=== PATIENT | female | born 1990 | race Caucasian/White ===

== ENCOUNTER 2016-11-19 10:45 | Emergency (ER) | payer OTHER ==
[2016-11-19 10:57] VITALS: BP 105/66
--- NOTE | 2016-11-19 12:09 | UC ---
Throat Pain/Nasal Ayan HPI - HPI Summary HPI Summary: SORE THROAT SINCE LAST NIGHT HURTS TO SWALLOW, 99.1 F. STREP HAS BEEN GOING AROUND - History of Current Complaint Chief Complaint: UCGeneralIllness Stated Complaint: SORE THROAT Time Seen by Provider: 11/19/16 10:59 Hx Obtained From: Patient Hx Last Menstrual Period: depo shots Onset/Duration: Still Present Severity: Moderate Pain Intensity: 6 Pain Scale Used: 0-10 Numeric Cough: None Associated Signs & Symptoms: Positive: Dysphagia, Hoarseness - Epiglottits Risk Factors Epiglottis Risk Factors: Negative - Allergies/Home Medications Allergies/Adverse Reactions: Allergies Allergy/AdvReac Type Severity Reaction Status Date / Time Lactose Intolerant Allergy Intermediate GI Upset Uncoded 02/09/16 16:32 Home Medications: Home Medications Atorvastatin* [Lipitor 10 MG*] 10 mg PO DAILY 11/19/16 [History Confirmed ] Dulaglutide [Trulicity] 0.75 mg SC WEEKLY 11/19/16 [History Confirmed 11/19/16] PMH/Surg Hx/FS Hx/Imm Hx Previously Healthy: Yes Endocrine History Of: Reports: Diabetes - Type 2 Denies: Thyroid Disease Cardiovascular History Of: Denies: Cardiac Disorders, Hypertension Respiratory History Of: Denies: COPD, Asthma GI/ History Of: Denies: Ulcer - Surgical History Surgical History: Yes Surgery Procedure, Year, and Place: C-SECTIONS X2 - Family History Known Family History: Positive: None Negative: Respiratory Disease - Social History Occupation: Employed Full-time Lives: With Family Alcohol Use: Occasionally Substance Use Type: None Smoking Status (MU): Never Smoked Tobacco Review of Systems Constitutional: Negative Skin: Negative Eyes: Negative ENT: Sore Throat Respiratory: Negative Cardiovascular: Negative Gastrointestinal: Negative Genitourinary: Negative Motor: Negative Neurovascular: Negative Musculoskeletal: Negative Neurological: Negative Psychological: Negative All Other Systems Reviewed And Are Negative: Yes Physical Exam Triage Information Reviewed: Yes Appearance: Well-Appearing, No Pain Distress, Well-Nourished Vital Signs: Initial Vital Signs Temp 99.1 F 11/19/16 10:53 Pulse 95 11/19/16 10:53 Resp 16 11/19/16 10:53 BP 105/66 11/19/16 10:53 Pulse Ox 100 11/19/16 10:53 Vital Signs Reviewed: Yes Eye Exam: Normal ENT: Positive: Pharyngeal erythema, TMs normal, Tonsillar swelling Dental Exam: Normal Neck exam: Normal Neck: Positive: Supple, Nontender, No Lymphadenopathy Respiratory Exam: Normal Respiratory: Positive: Chest non-tender, Lungs clear, Normal breath sounds, No respiratory distress, No accessory muscle use Cardiovascular Exam: Normal Cardiovascular: Positive: RRR, No Murmur, Pulses Normal Abdominal Exam: Normal Abdomen Description: Positive: Nontender, No Organomegaly Musculoskeletal Exam: Normal Musculoskeletal: Positive: Strength Intact, ROM Intact Neurological Exam: Normal Psychological Exam: Normal Psychological: Positive: Normal Response To Family Skin Exam: Normal Throat Pain/Nasal Course/Dx - Differential Dx/Diagnosis Differential Diagnosis/HQI/PQRI: Sinusitis, Tonsillitis, URI Provider Diagnoses: TONSILLITIS. UPPER RESPIRATORY INFECTION Discharge - Discharge Plan Condition: Stable Disposition: HOME Patient Education Materials: Upper Respiratory Infection (ED), Tonsillitis (ED) Referrals: Christopher Stiles MD [Primary Care Provider] -
== END 2016-11-19 11:52 | disposition home or self-care (01) ==
LOC: UCEAST 10:45
DX: J03.90 Acute tonsillitis, unspecified (principal); J06.9 Acute upper respiratory infection, unspecified
CPT/HCPCS: 87651; 99211; G0463

== ENCOUNTER 2017-12-01 18:46 | Emergency (ER) | payer OTHER ==
--- OUTSIDE RECORDS SUMMARY | 2017-12-01 20:32 | XMS REPORT ---
:1990 External Reference #:[id number] Author Organization [facility] Address [address] [address] Phone [phone] Care Team Providers Name Role Phone Christopher Stiles III, MD Primary Care Physician Unavailable Payers Type Date Identification Numbers Payment Provider Subscriber Health Maintenance Expires: Policy Number: [facility] Tanmay Vega Mambu (O) 10/04/2012 [id number] PayID: [id number] [address] [address] [place] [address] Commercial Policy Number: [id number] [employer] Tanmay Show de Ingressos PayID: [id number] [address] [address] [place] [address] Advance Directives Type Date Description Status Comment Other Directive 04/13/2017 Health Care Proxy Current and Verified Problems Date Description Provider Status Onset: 03/24/2014 Type 2 diabetes mellitus Karina Zepeda NPili Active Note: saw Dr. Walls, metformin, glipizide Onset: 03/24/2014 Chondromalacia of patella Karina Zepeda, N.P. Active Onset: 03/24/2014 Learning difficulties Karina Zepeda N.Keke. Active Note: Borderline Intellectual Functioning, see pysch evaluation 2009 Onset: 09/04/2015 Persistent proteinuria associated Karen Haynes M.D. Active with type 2 diabetes mellitus Onset: 09/04/2015 Hyperlipidemia Karen Haynes M.D. Active Onset: 03/24/2014 Bipolar disorder Karina Zepeda NAurelia. 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 Work Status Not Currently Working ETOH Use 03/02/2014 Denies alcohol use Smoking Patient has never smoked Recreational Drug Use Denies Drug Use Daily Caffeine Consumes on average 1 cup of regular coffee per day Exercise Type/Frequency Exercises regularly walking qod Currently Active Patient is currently sexually active Contraceptive Methods Current methods include depo-provera injection Allergies, Adverse Reactions, Alerts Date Description Reaction Status Severity Comments 03/02/2014 NKDA active Medications Medication Date Status Form Strength Qnty SIG Indications Ordering Provider [place] 01/07/ Active Misc 32G X 4 120un 1 daily and Christopher Foreman 2017 mm its as needed Lavon Stiles Freestyle Lite 08/11/ Active Strip 100un Use To Test E11.9 Karen Test 2016 its Blood [place], Glucose 3 To M.D. 4 Times A Day Unifine 08/08/ Active Misc 91WH2BS 100un Use With Karen Pentips 2016 its Lantus [place], 72PB3PT Solostar M.D. Daily Freestyle Lite 01/20/ Active Device 1unit check E11.9 Karen Blood Glucose 2016 s fingerstick [place], Monitoring daily 3-4 M.D. System times a day Freestyle Lite 01/20/ Active 100un 3-4 times E11.9 Karen Lancets 2016 its daily or as Haynes, needed M.D. [place] 09/06/ Active Misc 31G X 5 90uni use with Karen 12/18" 2015 mm ts lantus [place], solostar M.D. daily Atorvastatin 09/04/ Active Tablets 10mg 30tab Take One E78.2 Karen Calcium 2015 s Tablet By Haynes, Mouth Every M.D. Day Naproxen / Active Tablets 250mg 60tab 3 tab by Unknown 0000 s mouth 1 time Toujeo / Active Solution 300Unit/M 90 units sc Unknown Solostar 0000 Pen-Inject L once a day or as directed Trulicity / Active Solution 1.5mg/0.5 1 shot E11.9 Unknown 0000 Pen-Inject ML weekly Novolog / Active Solution 100Unit/M as directed Unknown Flexpen 0000 Pen-Inject L Basaglar 01/06/ Hx Solution 100Unit/M 30ml 90 units at Christopher Perezikpen 2017 - Pen-Inject L bedtime Linsey, M.D. 2017 Tresiba 01/02/ Hx Solution 100Unit/M 15ml 98 units Christopher Hernandeztouch 2017 - Pen-Inject L daily Linsey, M.D. 2016 Trulicity 10/09/ Hx Solution 0.75mg/0. 12uni inject 0..5 E11.9 Christopher Foreman 2017 - Pen-Inject 5ML ts mg once a Linsey, week M.D. 2016 Metformin HCL 09/08/ Hx Tablets 500mg 360ta 2 by mouth E11.9 Christopher Foreman 2016 - bs twice a day Linsey, M.D. 2017 Novolog 02/03/ Hx Solution 100Unit/M 45ml please Christopher Foreman Penfill 2016 - Cartridge L follow Linsey, M.D. 2016 scale as follows :bs 150-199 give 2 units , BS 200-250 give 4 u , 251-299 give 6 u, 300-350 , 8 u Freestyle Lite 01/20/ Hx 1Box 3-4 times a E11.9 Karen Test Strips 2015 - e11.65 [place], M.D. 2016 Amoxicillin 10/01/ Hx Tablets 500mg 14tab 1 tab by Roosevelt Lewis 2014 - s mouth twice MARGY Amador 12/31/ a day times 2016 7 days Cheratussin ac 09/21/ Hx Solution 100-10mg/ 180ml 5-10 Tenzin5 Joshua 2014 - 5ML milliliters Amador, HUMAN RESOURCES BENEFITS SPECIALIST 12/31/ by mouth 2016 four times a day as needed Fluconazole 09/19/ Hx Tablets 150mg 2tabs 1 by mouth B37.3 Karen 2015 - every day Haynes, M.D. 2014 Lisinopril 09/04/ Hx Tablets 2.5mg 90tab 1 by mouth E11.9 Karen 2015 - s every day Haynes, M.D. 2015 Fluconazole 09/04/ Hx Tablets 150mg 2tabs 1 by mouth B37.3 Karen 2015 - every day Haynes, 09/18/ M.D. 2014 Lantus 09/04/ Hx Solution 100Unit/M 15uni inject 95 E11.9 Christopher Lopez 2015 - Pen-Inject L ts units under Linsey, 04/13/ the skin M.D. 2017 daily Metformin HCL 11/02/ Hx Tablets 1000mg 180ta Does Not E11.9 Karen 2015 - bs Take Haynes, 09/08/ M.D. 2016 Glipizide ER 11/02/ Hx Tablets ER 10mg 60tab take one E11.9 Christopher Foreman 2015 - 24HR s tablet by Linsey, 04/13/ mouth twice M.D. 2017 a day Metformin HCL 07/21/ Hx Tablets 500mg 30tab 1 tablet po 250.02 Mirza 2014 - s bid Cameroonian, 2014 No Active 03/02/ Hx Unknown Medications 2013 - 2013 Immunizations CPT Code Status Date Vaccine Lot # [id number] Given 09/08/2016 Pneumonia Vaccine [id number] 95033 Given 09/08/2016 Influenza Virus Vaccine, Quadrivalent, Split [id number] Virus, Im Use [id number] Given 08/06/2015 Fluvirin Im 3Yrs And Older 10045 Given 07/21/2014 Flu Vaccine Split Virus Preservative Free For [id number] Indiv 3Yr Older 28706 Given 06/26/2011 Flu Vaccine Split Virus Preservative Free For Indiv 3Yr Older 51907 Given 02/02/2011 Tdap - Tetanus/Diptheria/Acellular Pertussis 63401 Given 07/11/2009 Varicella (Chicken Pox) Immunization 08172 Given 11/10/2007 Gardasil (HPV) 90250 Given 08/10/2007 Gardasil (HPV) 20078 Given 05/26/2007 Gardasil (HPV) 92176 Given 04/05/2004 Meningococcal Immunization 86002 Given 03/05/1999 Varicella (Chicken Pox) Immunization 14187 Given 03/05/1997 Hep B Pediatric/Adolescent 98092 Given 10/05/1995 Hep B Pediatric/Adolescent 22679 Given 09/04/1995 Hepatitis B Vaccine Adult Dosage 68095 Given 09/04/1995 Measles Mumps And Rubella MMR 08178 Given 04/04/1991 Measles Mumps And Rubella MMR 58341 Given Unknown Hepatitis B Vaccine Adult Dosage Vital Signs Date Vital Result Comment 11/06/2017 Height 59.75 inches 4'11.75" Weight 145.00 lb Respiratory Rate 14 /min Pain Level 8 BMI (Body Mass Index) 28.6 kg/m2 04/13/2017 Height 59.75 inches 4'11.75" Weight 150.12 lb Heart Rate 69 /min BP Systolic 110 mmHg BP Diastolic 60 mmHg Body Temperature 98.7 F O2 % BldC Oximetry 98 % BMI (Body Mass Index) 29.6 kg/m2 01/12/2017 Weight 152.00 lb Heart Rate 96 /min BP Systolic Sitting 124 mmHg BP Diastolic Sitting 72 mmHg Respiratory Rate 15 /min Body Temperature 98.0 F O2 % BldC Oximetry 98 % 10/09/2016 Weight 153.00 lb Heart Rate 96 /min BP Systolic Sitting 118 mmHg BP Diastolic Sitting 68 mmHg O2 % BldC Oximetry 98 % 09/08/2016 Weight 142.38 lb Heart Rate 83 /min BP Systolic 100 mmHg BP Diastolic 58 mmHg Body Temperature 99.3 F O2 % BldC Oximetry 98 % 05/05/2016 Weight 141.00 lb Heart Rate 74 /min BP Systolic Sitting 108 mmHg BP Diastolic Sitting 64 mmHg Body Temperature 98.3 F O2 % BldC Oximetry 99 % 02/20/2016 Height 59 inches 4'11" Weight 130.00 lb Heart Rate 90 /min BP Systolic 109 mmHg BP Diastolic 69 mmHg BMI (Body Mass Index) 26.3 kg/m2 01/21/2016 Weight 133.00 lb Heart Rate 90 /min BP Systolic Sitting 98 mmHg BP Diastolic Sitting 64 mmHg Body Temperature 98.9 F 01/01/2016 Height 58.5 inches 4'10.50" Weight 130.00 lb Heart Rate 82 /min BP Systolic 98 mmHg BP Diastolic 60 mmHg Body Temperature 98.8 F O2 % BldC Oximetry 98 % BMI (Body Mass Index) 26.7 kg/m2 10/01/2015 Height 58.5 inches 4'10.50" Weight 128.25 lb Heart Rate 99 /min BP Systolic Sitting 112 mmHg BP Diastolic Sitting 60 mmHg Body Temperature 97.4 F O2 % BldC Oximetry 98 % BMI (Body Mass Index) 26.3 kg/m2 09/21/2015 Weight 128.00 lb Heart Rate 98 /min BP Systolic Sitting 98 mmHg BP Diastolic Sitting 62 mmHg Body Temperature 99.4 F O2 % BldC Oximetry 99 % 09/18/2015 Weight 128.00 lb Heart Rate 93 /min BP Systolic Sitting 110 mmHg BP Diastolic Sitting 62 mmHg Body Temperature 98.3 F O2 % BldC Oximetry 98 % 09/04/2015 Weight 122.00 lb Heart Rate 88 /min BP Systolic Sitting 118 mmHg BP Diastolic Sitting 66 mmHg Respiratory Rate 15 /min Body Temperature 98.0 F O2 % BldC Oximetry 98 % 11/02/2014 Weight 123.00 lb Heart Rate 71 /min BP Systolic Sitting 105 mmHg BP Diastolic Sitting 64 mmHg O2 % BldC Oximetry 98 % 07/21/2014 Weight 122.00 lb Heart Rate 80 /min BP Systolic Sitting 90 mmHg BP Diastolic Sitting 48 mmHg Body Temperature 97.5 F 03/02/2014 Height 58.5 inches 4'10.50" Weight 128.00 lb Heart Rate 80 /min BP Systolic Sitting 102 mmHg BP Diastolic Sitting 64 mmHg Body Temperature 98.3 F BMI (Body Mass Index) 26.3 kg/m2 Results Test Date Test Result H/L Range Note Laboratory test 04/13/2017 Hemoglobin A1c 7.5 High 5-7 finding Laboratory test 02/24/2017 (HCG) Urine Negative Negative 1 finding Basic Metabolic Panel 02/13/2017 Sodium 135 mmol/L 133-145 Potassium 4.3 mmol/L 3.5-5.0 Chloride 101 mmol/L 101-111 Co2 Carbon Dioxide 27 mmol/L 22-32 Anion Gap 7 mmol/L 2-11 Glucose 270 mg/dL High 70-100 Blood Urea Nitrogen 10 mg/dL 6-24 Creatinine 0.61 mg/dL 0.51-0.95 BUN/Creatinine Ratio 16.4 8-20 Calcium 9.6 mg/dL 8.6-10.3 Egfr Non- 117.7 >60 Egfr 151.3 >60 2 Laboratory test finding 01/12/2017 Hemoglobin A1c 8.6 High 5-7 Laboratory test finding 11/19/2016 Rapid Strep Molecular Negative Negative 3 Basic Metabolic Panel 11/14/2016 Sodium 136 mmol/L 133-145 Potassium 3.9 mmol/L 3.5-5.0 Chloride 105 mmol/L 101-111 Co2 Carbon Dioxide 26 mmol/L 22-32 Anion Gap 5 mmol/L 2-11 Glucose 128 mg/dL High 70-100 Blood Urea Nitrogen 9 mg/dL 6-24 Creatinine 0.55 mg/dL 0.51-0.95 BUN/Creatinine Ratio 16.4 8-20 Calcium 9.4 mg/dL 8.6-10.3 Egfr Non- 133.6 >60 Egfr 171.8 >60 4 Basic Metabolic Panel 10/13/2016 Sodium 137 mmol/L 133-145 Potassium 4.4 mmol/L 3.5-5.0 Chloride 102 mmol/L 101-111 Co2 Carbon Dioxide 25 mmol/L 22-32 Anion Gap 10 mmol/L 2-11 Glucose 144 mg/dL High 70-100 Blood Urea Nitrogen 13 mg/dL 6-24 Creatinine 0.69 mg/dL 0.51-0.95 BUN/Creatinine Ratio 18.8 8-20 Calcium 10.3 mg/dL 8.6-10.3 Egfr Non- 102.8 >60 Egfr 132.3 >60 5 Basic Metabolic Panel 09/10/2016 Sodium 135 mmol/L 133-145 Potassium 3.9 mmol/L 3.5-5.0 Chloride 102 mmol/L 101-111 Co2 Carbon Dioxide 25 mmol/L 22-32 Anion Gap 8 mmol/L 2-11 Glucose 228 mg/dL High 70-100 Blood Urea Nitrogen 8 mg/dL 6-24 Creatinine 0.66 mg/dL 0.51-0.95 BUN/Creatinine Ratio 12.1 8-20 Calcium 9.1 mg/dL 8.6-10.3 Egfr Non- 108.3 >60 Egfr 139.2 >60 6 Urine Microalbumin Random 09/10/2016 Urine Creatinine 143.45 mg/dL Ur Microalbumin (mg/L) 15.7 mg/L Urine Microalbumin/Creatinine 10.9 ug/mg <31 Laboratory test finding 09/08/2016 Hemoglobin A1c 10.3 High 5-7 Lipid Profile (Trig/Chol/HDL) 05/07/2016 Triglycerides 153 mg/dL 7 Cholesterol 147 mg/dL 8 HDL Cholesterol 38.5 mg/dL 9 LDL Cholesterol 78 mg/dL 10 Laboratory test finding 05/05/2016 Hemoglobin A1c 8.8 High 5-7 Liver Function Panel 01/01/2016 Total Protein 7.5 g/dL 6.4-8.9 Albumin 4.6 g/dL 3.2-5.2 Globulin 2.9 g/dL 2-4 Albumin/Globulin Ratio 1.6 1-3 Total Bilirubin 1.50 mg/dL High 0.2-1.0 Direct Bilirubin 0.20 mg/dL High 0.03-0.18 Indirect Bilirubin 1.3 mg/dL High 0.3-1.0 Alkaline Phosphatase 87 U/L 34-104 Alt 18 U/L 7-52 Ast 13 U/L 13-39 Laboratory test finding 01/01/2016 C-Peptide 4.6 ng/mL 1.1 - 4.4 11 Hemoglobin A1c (Glyco HGB) 11.1 % High Less than 6.0 12 HIV 1/2 AB Evaluation 01/01/2016 HIV 1 2 Antibody Nonreactive Nonreactive 13 Laboratory test 01/01/2016 Hemoglobin A1c 10.8 High 5-7 finding Urine Microalbumin 09/04/2015 Ur Microalbumin 44.0 mg/L Random (mg/L) Urine Creatinine 231.73 mg/dL Urine Microalbumin/Creatinine 18.9 ug/mg <31 Laboratory test finding 09/04/2015 Hemoglobin A1c 11.5 High 5-7 Laboratory test finding 11/02/2014 Hemoglobin A1c 11.2 High 5-7 Lipid Profile (Trig/Chol/HDL) 07/24/2014 Triglycerides 208 mg/dL 14, 15 Cholesterol 207 mg/dL 14, 16 HDL Cholesterol 39.8 mg/dL 14, 17 LDL Cholesterol 126 mg/dL 14, 18 Comp Metabolic Panel 07/24/2014 Sodium 136 mmol/L 133-145 14 Potassium 4.3 mmol/L 3.7-5.6 14 Chloride 103 mmol/L 101-111 14 Co2 Carbon Dioxide 24 mmol/L 22-32 14 Anion Gap 9 mmol/L 2-11 14 Glucose 295 mg/dL High 70-100 14 Blood Urea Nitrogen 11 mg/dL 6-24 14 Creatinine 0.60 mg/dL 0.51-0.95 14 BUN/Creatinine Ratio 18.3 8-20 14 Calcium 9.7 mg/dL 8.6-10.3 14 Total Protein 7.0 g/dL 6.4-8.9 14 Albumin 4.3 g/dL 3.2-5.2 14 Globulin 2.7 g/dL 2-4 14 Albumin/Globulin Ratio 1.6 1-3 14 Total Bilirubin 1.10 mg/dL High 0.2-1.0 14 Alkaline Phosphatase 115 U/L High 34-104 14 Alt 59 U/L High 7-52 14 Ast 24 U/L 13-39 14 Egfr Non- 122.8 >60 14 Egfr 158.0 >60 14, 19 Urine Microalbumin Random 07/21/2014 Ur Microalbumin (mg/L) 27.0 mg/L Urine Creatinine 44.05 mg/dL Urine Microalbumin/Creatinine 61.2 High Less Than 31 Laboratory test finding 07/21/2014 Hemoglobin A1c 13.6 High 5-7 1 If is still suspected, please repeat test after 48 to 72 hours. This test detects intact HCG only and is indicated for the early detection of . 2 Because ethnic data is not always readily available, this report includes an eGFR for both -Americans and non- Americans. The National Kidney Disease Education Program (NKDEP) does not endorse the use of the MDRD equation for patients that are not between the ages of 18 and 70, are , have extremes of body size, muscle mass, or nutritional status, or are non- or non-. According to the National Kidney Foundation, irrespective of diagnosis, the stage of the disease is based on the level of kidney function: Stage Description GFR(mL/min/1.73 m(2)) 1 Kidney damage with normal or decreased GFR 90 2 Kidney damage with mild decrease in GFR 60-89 3 Moderate decrease in GFR 30-59 4 Severe decrease in GFR 15-29 5 Kidney failure <15 (or dialysis) 3 Auto Body Detailer: [id number] DOMINGUEZ BORJA 4 Because ethnic data is not always readily available, this report includes an eGFR for both -Americans and non- Americans. The National Kidney Disease Education Program (NKDEP) does not endorse the use of the MDRD equation for patients that are not between the ages of 18 and 70, are , have extremes of body size, muscle mass, or nutritional status, or are non- or non-. According to the National Kidney Foundation, irrespective of diagnosis, the stage of the disease is based on the level of kidney function: Stage Description GFR(mL/min/1.73 m(2)) 1 Kidney damage with normal or decreased GFR 90 2 Kidney damage with mild decrease in GFR 60-89 3 Moderate decrease in GFR 30-59 4 Severe decrease in GFR 15-29 5 Kidney failure <15 (or dialysis) 5 Because ethnic data is not always readily available, this report includes an eGFR for both -Americans and non- Americans. The National Kidney Disease Education Program (NKDEP) does not endorse the use of the MDRD equation for patients that are not between the ages of 18 and 70, are , have extremes of body size, muscle mass, or nutritional status, or are non- or non-. According to the National Kidney Foundation, irrespective of diagnosis, the stage of the disease is based on the level of kidney function: Stage Description GFR(mL/min/1.73 m(2)) 1 Kidney damage with normal or decreased GFR 90 2 Kidney damage with mild decrease in GFR 60-89 3 Moderate decrease in GFR 30-59 4 Severe decrease in GFR 15-29 5 Kidney failure <15 (or dialysis) 6 Because ethnic data is not always readily available, this report includes an eGFR for both -Americans and non- Americans. The National Kidney Disease Education Program (NKDEP) does not endorse the use of the MDRD equation for patients that are not between the ages of 18 and 70, are , have extremes of body size, muscle mass, or nutritional status, or are non- or non-. According to the National Kidney Foundation, irrespective of diagnosis, the stage of the disease is based on the level of kidney function: Stage Description GFR(mL/min/1.73 m(2)) 1 Kidney damage with normal or decreased GFR 90 2 Kidney damage with mild decrease in GFR 60-89 3 Moderate decrease in GFR 30-59 4 Severe decrease in GFR 15-29 5 Kidney failure <15 (or dialysis) 7 Desirable <150 Borderline high 150-199 High 200-499 Very High >500 8 Desirable <200 Borderline high 200-239 High >239 9 Low <40 Desirable: 40-60 High: >60 10 Desirable: <100 mg/dL Near Optimal: 100-129 mg/dL Borderline High: 130-159 mg/dL High: 160-189 mg/dL Very High: >189 mg/dL 11 Test Performed by: [place] [address] Shake Maker: Vidal Moreira II, M.D., Ph.D. 12 Therapeutic target for the treatment of diabetes Mellitus patients is <7% HBA1C, and in selective patients <6.0%.Please refer to [employer] Diabetes Association Diabetic care guidelines for further information. 13 It is recognized that currently available assays for the detection of antibodies to HIV-1 and/or HIV-2 may not detect all infected individuals. HIV antibodies may be undetectable in some stages of the infection and in some clinical conditions. The performance of this assay has not been established for populations of infants or children. Assayed by Chemiluminescence Microparticle Immunoassay on the Siemens Advia Centaur CP. Values obtained with different methods or kits cannot be used interchangeably.The diagnostic specificity of the ADVIA Centaur 1/O/2 Enhanced assay in the low risk population was 99.90% (6052/6058) with a 95% confidence interval of 99.78 to 99.96%. 14 PT IS FASTING 15 Desirable <150 Borderline high 150-199 High 200-499 Very High >500 16 Desirable <200 Borderline high 200-239 High >239 17 Low <40 Desirable: 40-60 High: >60 18 Desirable <100 Near Optimal 100-129 Borderline high 130-159 High 160-189 Very High >189 19 Because ethnic data is not always readily available, this report includes an eGFR for both -Americans and non- Americans. The National Kidney Disease Education Program (NKDEP) does not endorse the use of the MDRD equation for patients that are not between the ages of 18 and 70, are , have extremes of body size, muscle mass, or nutritional status, or are non- or non-. According to the National Kidney Foundation, irrespective of diagnosis, the stage of the disease is based on the level of kidney function: Stage Description GFR(mL/min/1.73 m(2)) 1 Kidney damage with normal or decreased GFR 90 2 Kidney damage with mild decrease in GFR 60-89 3 Moderate decrease in GFR 30-59 4 Severe decrease in GFR 15-29 5 Kidney failure <15 (or dialysis) Procedures Date CPT Code Description Status 07/18/2016 Diabetic Retinal Eye Exam Completed 04/21/2013 57734 Nerve Conduction 05-06 Studies Completed 04/21/2013 21828 Nerve Conduction 03-04 Studies Completed 04/21/2013 18433 Needle Electromyography Complete, Five Or More Muscles Completed Studied Encounters Type Date Location Provider CPT E/M Dx Office Visit 04/13/2017 10:00a [facility] Christopher Stiles 09228 E11.9 - Emperatriz Doll E78.5 Office Visit 01/12/2017 10:20a [facility] Christopher Stiles 44428 E11.9 - Emperatriz Doll Office Visit 10/09/2016 11:20a [facility] Christopher Stiles 39818 E11.9 - Emperatriz Doll Office Visit 09/08/2016 11:20a [facility] Christopher Stiles 20294 E11.9 - Emperatriz Doll E78.5 Z23 Office Visit 05/05/2016 1:40p [facility] Karen Haynes 48284 E11.65 - Nenita Doll E78.5 Office Visit 02/20/2016 10:30a [facility] M.D. 02817 M76.51 C.M.A. Office Visit 01/21/2016 10:30a [facility] Karen Haynes 07157 E11.65 - Nenita Doll Office Visit 01/01/2016 10:30a [facility] Karen Haynes 82293 E11.65 - Nenita Doll E78.2 Z11.4 Office Visit 10/01/2015 1:00p [facility] [place] [address] R05 - Nenita Office Visit 09/21/2015 12:00p [facility] [place] [address] R05 - Nenita Office Visit 09/18/2015 9:50a [facility] Karen Haynes 63775 E11.65 - Nenita Doll Office Visit 09/04/2015 11:50a [facility] Karen Haynes 68080 E11.65 - Nenita Doll E78.2 E11.21 B37.3 Office Visit 11/02/2014 10:00a [facility] - Mirza Bustillos, HUMAN RESOURCES BENEFITS SPECIALIST 40771 250.02 [place] Office Visit 07/21/2014 11:00a [facility] - Mirzajosseline Bustillos, HUMAN RESOURCES BENEFITS SPECIALIST 21997 250.02 [place] V77.91 V04.81 Office Visit 03/02/2014 3:00p [facility] Karina Zepeda N.PLeighann 91107 V70.0 - [place] 354.0 V77.91 V77.1 Office Visit 01/27/2013 9:00a [facility], 22532 354.2 Sharon[place] Doll 354.0 Office Visit 12/17/2009 8:00a [facility] M.D. 15282 726.64 C.M.ALeighann 718.86 Plan of Care Future Appointment(s):01/01/2018 9:30 am - Jon Stuart MD at [facility]/13/2018 9:20 am - Christopher Stiles M.D. at [facility] - Lciqcljyk39/02/2018 - Jon Stuart MDG56.21 Lesion of ulnar nerve , right upper limbNew Orders:EMG w/Nerve Conduct Study, UpperFollow up:Follow up : 7-10 days before surgery to review EMG
[2017-12-01 20:43] VITALS: BP 128/77
[2017-12-01] MEDS ORDERED: Naproxen TAB* 250 MG PO ONE (21:44)
--- NOTE | 2017-12-01 21:46 | RAD ---
Indication: Medial malleolus RIGHT ankle pain following injury yesterday. Pain and bruising. Comparison: February 07, 2010 Technique: AP, mortise, and lateral views RIGHT ankle. REPORT AND IMPRESSION: Soft tissue swelling most prominent superior to the medial malleolus. Negative for fracture or malalignment. Tiny smooth margined chronic appearing accessory ossicle at the tip of the medial malleolus without concern.
--- NOTE | 2017-12-01 21:48 | UC ---
Lower Extremity/Ankle HPI - HPI Summary HPI Summary: 27 y/o female presents to the urgent care c/o RT ankle pain s/p injury when a toy car hit her Rt ankle yesterday. Pt applied ice and took Naproxen to alleviate pain. Pt has mild swelling and bruising over the medial side of Rt ankle. Pain is 4/10 w/ movement and touch. Pt denies fever, SOB, numbness and tingling over the Rt foot, chest pain, abdominal pain, N/V/D - History of Current Complaint Chief Complaint: UCLowerExtremity Stated Complaint: ANKLE INJURY Time Seen by Provider: 12/01/17 21:24 Hx Obtained From: Patient Hx Last Menstrual Period: 11/17/17 ?: No Onset/Duration: Sudden Onset, Lasting Days - 1 day, Still Present Severity Initially: Moderate Severity Currently: Severe Pain Intensity: 9 Pain Scale Used: 0-10 Numeric Aggravating Factor(s): Ambulation Alleviating Factor(s): Rest, Ice, OTC Meds Able to Bear Weight: Yes - Risk Factors Gout Risk Factors: Negative, Diabetes DVT Risk Factors: Negative Septic Arthritis Risk Factor: Negative - Allergies/Home Medications Allergies/Adverse Reactions: Allergies Allergy/AdvReac Type Severity Reaction Status Date / Time Lactose Intolerant Allergy Intermediate GI Upset Uncoded 12/01/17 20:43 Home Medications: Home Medications Insulin ASPART (NF) [Novolog (NF)] 0 units SUBCUT .enter frequency 12/01/17 [ History Confirmed 12/01/17] Insulin Glargine (Nf) [Toujeo Solostar Pen (NF)] 12/01/17 [History] PMH/Surg Hx/FS Hx/Imm Hx Previously Healthy: Yes Endocrine History: Diabetes - Surgical History Surgical History: Yes Surgery Procedure, Year, and Place: C-SECTIONS X2 - Family History Known Family History: Positive: Diabetes Negative: Respiratory Disease - Social History Occupation: Employed Full-time Lives: With Family Alcohol Use: None Substance Use Type: None Smoking Status (MU): Never Smoked Tobacco Review of Systems Constitutional: Negative Skin: Negative Eyes: Negative ENT: Negative Respiratory: Negative Cardiovascular: Negative Gastrointestinal: Negative Genitourinary: Negative Motor: Negative Neurovascular: Negative Musculoskeletal: Decreased ROM - RT ankle, Other: - RT ankle pain s/p injury Neurological: Negative Psychological: Negative Is Patient Immunocompromised?: No All Other Systems Reviewed And Are Negative: Yes Physical Exam Triage Information Reviewed: Yes Vital Signs: Initial Vital Signs Temp 98.3 F 12/01/17 20:38 Pulse 97 12/01/17 20:38 Resp 16 12/01/17 20:38 BP 128/77 12/01/17 20:38 Pulse Ox 99 12/01/17 20:38 - Additional Comments Vital Signs Reviewed: Yes General: well developed, well nourished female, sitting in the examining table w /o any apparent distress Eyes: Positive: Conjunctiva Clear - PERRLA, EOMI, ENT: Positive: Normal ENT inspection, Hearing grossly normal, Pharynx normal, TMs normal Neck: Positive: Supple, Nontender, No Lymphadenopathy Respiratory: Positive: Chest non-tender, Lungs clear, Normal breath sounds, No respiratory distress Cardiovascular: Positive: RRR, No Murmur, Pulses Normal, Brisk Capillary Refill Abdomen Description: Positive: Nontender, No Organomegaly, Soft. Negative: CVA Tenderness (R), CVA Tenderness (L) Bowel Sounds: Positive: Present Musculoskeletal: - Ankle: Pt is able to bear weight and ambulate w/ limping. The R ankle is without obvious asymmetry or deformity when compared to the L ankle. Decreased ROM due to pain. Moderate swelling at the mediall malleolus, with tenderness to palpation. No ecchymosis or bruising observed. No Tenderness to palpation over the lateral l malleolus , no swelling observed. Talar tilt test is negative for ligament laxity to valgus or varus stress. Negative anterior drawer. Peroneal nerve is intact with strong eversion and plantar flexion. Positive sensation over the Rt foot and Rt ankle, positive pulses, capillary refill intact Neurological Exam: Normal Psychological Exam: Normal Skin: warm and dry Lower Extremity Course/Dx - Course Course Of Treatment: 27 y/o female presents to the urgent care c/o RT ankle pain s/p injury when a toy car hit her Rt ankle yesterday. Pt applied ice and took Naproxen to alleviate pain. Pt has mild swelling and bruising over the medial side of Rt ankle. Pain is 4/10 w/ movement and touch. Pt denies fever, SOB, numbness and tingling over the Rt foot, chest pain, abdominal pain, N/V/D. hx obtained. Rt ankle X-ray ordered, Impression: Soft tissue swelling most prominent superior to the medial malleolus, no acute fracture, tiny chronic ossicle observed at tip of medial malleolus as per radiologist. . Pt most likely with a RT ankle Sprain. Pt immobilized with gel ankle splint to , given crutches to avoid weight bearing, Rx Naproxen PO to decrease swelling and pain. Pt advised RICE, take Ibuprofen PO for pain and to f/u with PCP on orthopedic in 1 week if not improvement of symptoms for further treatment. Pt understood and agreed and left the clinic ambulating w/ the help of crutches. - Differential Dx/Diagnosis Differential Diagnosis/HQI/PQRI: Contusion, Dislocation, Fracture (Closed), Sprain, Strain, Tendonitis Provider Diagnoses: 1- RT acute ankle pain s/p injury Discharge - Discharge Plan Condition: Stable Disposition: HOME Prescriptions: Naproxen [Naproxen 500 mg] 500 mg PO Q8H PRN #30 tab PRN Reason: Pain Patient Education Materials: Ankle Sprain (ED) Referrals: Christopher Stiles MD [Primary Care Provider] - 1 Week Darling Enriquez MD [Medical Doctor] - 1 Week Additional Instructions: 1-Please take medications as directed to alleviate pain and swelling. 2-Please apply ice, keep your ankle immobilized with the splint. Avoid weight bearing using the crutches 3- Please f/u with Orthopedic or your PCP in 1 week is not improvement of symptoms for further evaluation and treatment.
== END 2017-12-01 22:05 | disposition home or self-care (01) ==
LOC: UCEAST 18:46
DX: M25.571 Pain in right ankle and joints of right foot (principal); W22.8XXA Striking against or struck by other objects, initial encounter; Y93.9 Activity, unspecified; Y92.9 Unspecified place or not applicable; E11.9 Type 2 diabetes mellitus without complications; Z79.4 Long term (current) use of insulin
CPT/HCPCS: 99213; A9270-GY; G0463

== ENCOUNTER 2017-12-21 06:55 | Day surgery (SDC) | payer OTHER ==
[~2017-12-21 06:55] MED LIST: Buffered Lidocaine 0.9% SYRIN* 5 ML/SYR SYRINGE INTRADERM ONE; Sodium Citrate/Citric Acid* 15 ML UDC PO ONE
[2017-12-21] MEDS ORDERED: Sodium Citrate/Citric Acid* 15 ML UDC ONE (07:03)
[2017-12-21] MEDS ORDERED: ceFAZolin 2 GM (*##) 2 GM/100 ML BAG USE CEFA2SOL IVPB ONE (07:03)
[2017-12-21] MEDS ORDERED: Insulin LISPRO* 1 UNITS UNIT SUBCUT ONE (07:43)
[2017-12-21] MEDS ORDERED: Bupivacaine 0.25% SDV* 30 ML ONE (08:17)
[2017-12-21] MEDS ORDERED: fentaNYL* 50 MCG/ML 2 ML VIAL (100 MCG VIAL) ONE ×2 (08:31→10:41)
[2017-12-21] MEDS ORDERED: Lidocaine 2% PF * 5 ML VIAL ONE (08:31)
[2017-12-21] MEDS ORDERED: Propofol* 10 MG/ML 20 ML BTL IV PUSH ONE (08:54)
[2017-12-21] MEDS ORDERED: Ondansetron INJ* 2 MG/ML VIAL IV PRN (08:58)
[2017-12-21] MEDS ORDERED: Naloxone* 0.4 MG/ML 1 ML VIAL IV PRN (08:58)
[2017-12-21] MEDS: fentaNYL* 50 MCG/ML 2 ML VIAL (100 MCG VIAL) IV PRN ×2 (10:43→11:03)
[2017-12-21] MEDS ORDERED: HYDROcodone/ACETAMIN 5-325 MG* 1 TAB ONE (12:22)
[2017-12-21 12:28] VITALS: BP 119/80
--- NOTE | 2017-12-22 08:51 | OP ---
DATE OF OPERATION: 12/21/17 - [facility] DATE OF : 89 SURGEON: Jon Stuart MD BIOLOGICAL INSPECTOR: ROGER Cabrera. An administrative office assistant was needed for the entirety of the procedure to aid in positioning of the arm and retraction. ANESTHESIOLOGIST: Dr. Ladd. ANESTHESIA: General. 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 OPERATIVE PROCEDURE: 1. Right ulnar nerve decompression at the wrist. 2. Right ulnar nerve decompression of the elbow with anterior transposition. Please note that the nerve was quite unstable and had significant amount of adhesions in the subluxated position, requiring a significant amount of perineural dissection and neurolysis, immobilization of the nerve making this much more complicated than a standard ulnar nerve decompression at the elbow. INDICATIONS: Tanmay is 27 years old. She has severe symptoms in the ulnar nerve distribution. The numbness and tingling is daily and multiple times a day, becoming more constant over the last couple of years. She has instability of the ulnar nerve. She also had signs of compression on exam at the wrist. I talked to her about her treatment options. I told her that I do not think we needed to do the carpal tunnel as well given that she had no findings of carpal tunnel syndrome on her electrodiagnostic studies and not really any symptoms in those fingers. She understood the risks including the risk of ulnar nerve injury as well as hematoma and wound problems. She wanted to proceed. ESTIMATED BLOOD LOSS: 2 mL. COMPLICATIONS: None. FINDINGS: As excepted, see above and below. DESCRIPTION OF PROCEDURE: Tanmay was seen in the preoperative holding area. The correct site, side, and procedure were identified. We came back to the operating room, anesthesia was induced, the arm was prepped and draped in the usual fashion. A time-out was performed. The arm was exsanguinated with the Esmarch and the tourniquet was inflated to 250 mmHg. I began by making a longitudinal incision in the proximal palm, which was brought back across the ulnar side of the wrist in Elias type fashion. Dissection was carried down the fascia overlying the ulnar neurovascular bundle, was opened proximally. This was followed down and the roof of Guyon's canal was released. There were quite a few traversing veins and these were cauterized and released with the bipolar cautery. The ulnar nerve was dissected free in this fashion. The motor branch was released as it dove deep around the hook of the hamate. The sensory branches were released distally. Once there was absolutely no compression on the nerve, I irrigated out the wound and the skin was closed with 4-0 nylon sutures. I then turned my attention to the elbow. I abducted and externally rotated the arm. A curvilinear incision was made centered over the Andrea's ligament. Dissection was carried down through the subcutaneous tissue. The ulnar nerve was seen draped over and anterior to the medial epicondyle and then diving distally down below the FCU fascia. I very carefully dissected this free. Andrea's ligament was very attenuated and adhesed to the nerve. I went ahead and completed the neurolysis. There was a sensory branch of the nerve going down to the elbow capsule that was tethering the nerve. This was released to allow for mobilization of the nerve. The FCU motor branches were identified and preserved. This took quite a bit of time, but I was able to mobilize the nerve. During this process, I had proximally released the fascia overlying the ulnar nerve all the way past the arcade of [place]run. Distally, I had release the superficial FCU fascia, the 2 ends of the FCU and the subfascial layer. Once I had the neurolysis performed and the nerve transposed without any tension or kinking of the nerve, I went ahead and raised step cut type fascial flaps off the flexor pronator fascia. The septi between the muscular bellies were excised. The medial intramuscular septum was excised. The leading edge of the FCU fascia was released. Once I had a nice soft muscle bed prepared without any fascial edges to kink the nerve, I went head and transposed the nerve. My 2 fascial flaps were then sewn end-to-end with 4-0 Ethibond suture to keep the nerve in the transposed position. The arm was then flexed and extended multiple times. The nerve stayed in a very nice position without any tension or kinking. The hemostasis was then obtained with a Bovie cautery. Subcutaneous tissue was reapproximated with 3-0 Vicryl suture and skin was closed with 4-0 Monocryl suture and Steri-Strips. Both operative areas were infiltrated with 0.25% plain Marcaine. The wounds were dressed with Xeroform, 4x4s, sterile Webril and ABD at the elbow and a long arm splint with the arm in 80 degrees of flexion was applied. The tourniquet was deflated during the splint placement and the hand pinked up immediately. She was woken up and taken to the recovery room in stable condition. [id number]/[facility] #: [id number] RILEY
== END 2017-12-21 13:12 | disposition home or self-care (01) ==
LOC: OR 06:55
PROVIDERS: ATTEND Orthopaedic Surgery Hand Surgery
PROC: 01N40ZZ Release Ulnar Nerve, Open Approach (ICD-10-PCS; principal; 2017-12-21 08:30)
DX: G56.21 Lesion of ulnar nerve, right upper limb (principal); E11.8 Type 2 diabetes mellitus with unspecified complications; E78.5 Hyperlipidemia, unspecified; Z79.4 Long term (current) use of insulin
CPT/HCPCS: 81025; A9270-GY; J2704; J3010

== ENCOUNTER 2018-05-17 18:56 | Emergency (ER) | payer OTHER ==
--- OUTSIDE RECORDS SUMMARY | 2018-05-17 19:21 | XMS REPORT ---
:1990 External Reference #:[id number] Author Organization Alexis Napier M.D., [facility] Address [address] [place] [address] Phone [phone] Care Team Providers Name Role Phone Karen Haynes MD Care Team Information Child Care Centre Manager Unavailable Karen Haynes MD Primary Care Physician Unavailable Payers Type Date Identification Numbers Payment Provider Subscriber Health Maintenance Policy Number: [id number] [facility] Tanmay Vega Organization (HMO) PayID: [id number] [address] [address] [place] [address] Problems Date Description Provider Status Onset: 07/18/2016 Type 2 diabetes mellitus Alexis Napier M.D. Active Family History Date Family Member(s) Problem(s) Comments General Not Known - Adopted Father Not Known - Adopted Mother Not Known - Adopted Social History Type Date Description Comments ETOH Use Rarely consumes alcohol Smoking Patient has never smoked Allergies, Adverse Reactions, Alerts Date Description Reaction Status Severity Comments 07/18/2016 NKDA active Medications Medication Date Status Form Strength Qnty SIG Indications Ordering Provider Toujeo Max Active Solution 300Unit/ML 200 units Unknown Solostar 000 Pen-Inject in morning Trulicity 0 Active Solution 1.5mg/0.5M Unknown 000 Pen-Inject L Metformin HCL /0 Hx Tablets ER 500mg Unknown ER 000 - 24HR 018 Glipizide XL 0000/0 Hx Tablets ER 10mg Unknown 000 - 24HR 018 Humalog Kwikpen /0 Hx Solution 100Unit/ML Unknown 000 - Pen-Inject 018 Atorvastatin 00/00/0 Hx Tablets 40mg Unknown Calcium 000 - 018 Vital Signs Date Vital Result Comment 05/07/2018 Intraocular Pressure Right Eye 19 mmHg Intraocular Pressure Left Eye 19 mmHg 07/18/2016 Intraocular Pressure Right Eye 19 mmHg Intraocular Pressure Left Eye 20 mmHg Results Description No Information Procedures Date CPT Code Description Status 05/07/2018 85066 Ophthalmoscopy Subsequent Completed 05/07/2018 03135 Refraction Completed 05/07/2018 68743 Eye Exam Est Comprehensive Completed 07/18/2016 16373 Ophthalmoscopy Subsequent Completed 07/18/2016 94266 Eye Exam New Comprehensive Completed Plan of Care 05/07/2018 - Alexis Napier M.D.E11.9 Type 2 diabetes mellitus without [id number] Myopia, bilateralFollow up:1 yr
--- NOTE | 2018-05-17 21:54 | ED ---
GI/ HPI - HPI Summary HPI Summary: 28 year old female LMP march 24 presents with lower abdominal pain today. She states that the dog jumped on her lower abdomen. She has been having crampy pain for 2 hours. She denies any vaginal discharge. No vaginal bleeding. unsure what blood type is. No pain with urination. No fevers. No nausea or vomiting. no diarrhea or constipation. - History of Current Complaint Chief Complaint: EDAbdPain Time Seen by Provider: 05/17/18 21:42 Stated Complaint: 6 WKS PREG/CRAMPING Hx Last Menstrual Period: 11/17/17 Pain Intensity: 3 - Allergy/Home Medications Allergies/Adverse Reactions: Allergies Allergy/AdvReac Type Severity Reaction Status Date / Time Lactose Intolerant Allergy Intermediate GI Upset Uncoded 05/17/18 21:59 Home Medications: Home Medications Dulaglutide [Trulicity] 1.5 mg SUBCUT WEEKLY 05/17/18 [History Confirmed ] Insulin Glargine (Nf) [Toujeo Solostar Pen (NF)] 60 unit SUBCUT BID 05/17/18 [ History Confirmed 05/17/18] PMH/Surg Hx/FS Hx/Imm Hx Endocrine/Hematology History: Reports: Hx Diabetes - Type 2 Denies: Hx Thyroid Disease Cardiovascular History: Denies: Hx Hypertension Respiratory History: Denies: Hx Asthma, Hx Chronic Obstructive Pulmonary Disease (COPD) GI History: Reports: Other GI Disorders - lactose intolerance Denies: Hx Ulcer Musculoskeletal History: Reports: Other Musculoskeletal History - right ulnar nerve issues Denies: Hx Scoliosis Sensory History: Reports: Hx Contacts or Glasses - glasses Denies: Hx Hearing Aid Opthamlomology History: Reports: Hx Contacts or Glasses - glasses Neurological History: Denies: Hx Headaches, Other Neuro Impairments/Disorders Psychiatric History: Reports: Hx Anxiety - Surgical History Surgery Procedure, Year, and Place: C-SECTIONS X2 Hx Anesthesia Reactions: No Infectious Disease History: No Infectious Disease History: Denies: Hx Hepatitis, Hx Human Immunodeficiency Virus (HIV), History Other Infectious Disease, Traveled Outside the [place] in Last 30 Days - Family History Known Family History: Positive: None, Diabetes Negative: Respiratory Disease - Social History Alcohol Use: None Substance Use Type: Reports: None Smoking Status (MU): Never Smoked Tobacco Review of Systems Negative: Fever Negative: Chest Pain Negative: Shortness Of Breath Positive: Abdominal Pain. Negative: Vomiting, Nausea All Other Systems Reviewed And Are Negative: Yes Physical Exam Triage Information Reviewed: Yes Vital Signs On Initial Exam: Initial Vitals Temp Pulse Resp BP Pulse Ox 98.2 F 89 16 118/69 97 05/17/18 19:04 05/17/18 19:04 05/17/18 19:04 05/17/18 19:04 05/17/18 19:04 Vital Signs Reviewed: Yes Appearance: Positive: Well-Appearing Skin: Positive: Warm, Dry Head/Face: Positive: Normal Head/Face Inspection Eyes: Positive: Normal, Conjunctiva Clear ENT: Positive: Pharynx normal Respiratory/Lung Sounds: Positive: Clear to Auscultation, Breath Sounds Present Cardiovascular: Positive: Normal, RRR Abdomen Description: Positive: Soft, Other: - minimially tednerness lower abd Bowel Sounds: Positive: Present Musculoskeletal: Positive: Normal Neurological: Positive: Normal Psychiatric: Positive: Normal Diagnostics - Vital Signs Vital Signs Temp Pulse Resp BP Pulse Ox 05/17/18 21:06 97.6 F 70 16 109/73 99 05/17/18 19:04 98.2 F 89 16 118/69 97 - Laboratory Result Diagrams: 05/17/18 22:44 05/17/18 21:55 Lab Statement: Any lab studies that have been ordered have been reviewed, and results considered in the medical decision making process. - Ultrasound No standard instances Ultrasound Interpretation: Positive (See Comments) - IMPRESSION: A gestational sac is seen without a pole being identified. Estimated age based on the gestational sac size is 5 weeks 0 days. This yields an JOCELYNE of 02/11/2019. No evidence of an adnexal mass or free pelvic fluid. This is a of unknown viability at the present time. Recommend followup per institutional guidelines. Ultrasound Interpretation Completed By: Radiologist LASHONDA Course/Dx - Course Course Of Treatment: 28 year old female LMP march 24 presents with lower abdominal pain today. She states that the dog jumped on her lower abdomen. She has been having crampy pain for 2 hours. She denies any vaginal discharge. No vaginal bleeding. unsure what blood type is. No pain with urination. No fevers. No nausea or vomiting. no diarrhea or constipation. on exam has tenderness lower abd. hcg is 5000 and u/s shows early . patient will follow up with ob. patient understand and agrees with plan. - Diagnoses Differential Diagnoses - Female: , Urinary Tract Infection, Other - ectopic Provider Diagnoses: Abdominal pain during in first trimester Discharge - Sign-Out/Discharge Documenting (check all that apply): Patient Departure - Discharge Plan Condition: Good Disposition: HOME Patient Education Materials: First Trimester (ED) Referrals: Christopher Stiles MD [Primary Care Provider] - Additional Instructions: Follow up with obgyn Take tyenol for pain as needed Return to ED if develop any new or worsening symptoms - Billing Disposition and Condition Condition: GOOD Disposition: Home
[2018-05-17 22:25] LABS: EGFR Non-African American 126.3 (>60)
[2018-05-17 22:33] LABS: Urine Appearance Clear; Urine Blood 1+ (Negative); Urine Color Straw; Urine Ketones Negative (Negative); Urine Protein Negative (Negative); Urine Red Blood Cell Trace(0-2/hpf) (Absent); Urine Specific Gravity 1.009 (1.010-1.030); Urine Urobilinogen Negative (Negative); Urine White Blood Cell Trace(0-5/hpf) (Absent)
[2018-05-17 22:50] LABS: Hematocrit 39 % (35-47); Hemoglobin 13.4 g/dl (12.0-16.0); Mean Corpuscular HGB Conc 34 g/dl (31-36); Mean Corpuscular Hemoglobin 30 pg (27-31); Mean Corpuscular Volume 88 fL (80-97); Mean Platelet Volume 8.4 um3 (7.4-10.4); Platelet Count 273 10^3/ul (150-450); Red Blood Count 4.46 10^6/ul (4.00-5.40); Red Cell Distribution Width 13 % (10.5-15); White Blood Count 15.4 10^3/ul (3.5-10.8)
--- NOTE | 2018-05-17 23:06 | RAD ---
EXAM: US , Transvaginal CLINICAL HISTORY: 28 years old, female; Pain; complicated by abdominal or pelvic pain; Generalized abdominal pain; First trimester; Gestational age or lmp: 6w4d; ; Prior surgery; Surgery date: 6+ months; Surgery type: HX of 2 csections; Additional info: Lower abdominal pain, 6 weeks TECHNIQUE: Real-time transvaginal obstetrical ultrasound of the maternal pelvis and a first trimester with image documentation. Transvaginal imaging was used for better evaluation of the fetus and adnexa. COMPARISON: No relevant prior studies available. FINDINGS: Gestation: The uterus measures 8.9 cm in length, 4.6 cm in height and 5.9 cm in width. The endometrial thickness is 16.5 mm.. and within the endometrial canal is a gestational sac. The gestational sac has a mean sac diameter of 0.46 cm. This yields an estimated age of 5 weeks. Placenta/amniotic fluid: Cannot be adequately evaluated due to the early gestational age. Uterus/cervix: Unremarkable. No myometrial mass. Ovaries: The right ovary measures 3 cm in length, 1.8 cm in height and 2.1 cm in width. Normal blood flow. The left ovary measures 2.4 cm in length, 1.3 cm in height and 2.4 cm in width. Normal blood flow. No adnexal mass. Free fluid: No free pelvic fluid. The results of this exam were called to the emergency department charge nurse. IMPRESSION: A gestational sac is seen without a pole being identified. Estimated age based on the gestational sac size is 5 weeks 0 days. No heartbeat or yolk sac is seen. The possibility of an ectopic cannot be ruled out. Therefore recommend follow-up quantitative beta-hCG and serial transvaginal pelvic ultrasound studies as clinically needed.
[2018-05-17 23:55] VITALS: BP 110/70
[2018-05-18 00:50] LABS: ABS Basophils 0.1 10^3/ul (0-0.2); ABS Eosinophils 0.2 10^3/ul (0-0.6); ABS Lymphocytes 5.7 10^3/ul (1.0-4.8); ABS Neutrophils 8.5 10^3/ul (1.5-7.7); ABS Nucleated RBC 0 10^3/ul; Lymphocyte % 36.7 % (25-47); Nucleated Red Blood Cells % 0
--- NOTE | 2018-05-18 17:29 | PN ---
Progress Note - Progress Note Date of Service: 05/17/18 Note: Pt. was seen in ER yesterday for pelvic pain in early . At the time of her visit she had not yet had a confirmed IUD. Blood work and u/s was completed in ER. Virtual radiology read u/s and saw signs of early within the uterus and no adnexal masses. [facility] radiology, Dr. Melgar, reviewed u/s this morning and his reading is as follows: IMPRESSION: A gestational sac is seen without a pole being identified. Estimated age based on the gestational sac size is 5 weeks 0 days. This yields an JOCELYNE of 02/11/2019. No evidence of an adnexal mass or free pelvic fluid. This is a of unknown viability at the present time. Recommend followup per institutional guidelines. I attempted to call pt. today at [phone] with no answer. Message left to return call to ER. Pt. was advised close f.u with her OB at her time of discharge and was given return precautions. Will attempt to call again tomorrow to ensure pt. gets close f.u.
--- NOTE | 2018-05-20 20:21 | PN ---
Progress Note - Progress Note Date of Service: 05/20/18 Note: patient urine culture grew E coli 25-50,000 which is not a significant culture and patient declined any uti sx so will not treat at this time.
== END 2018-05-17 23:54 | disposition home or self-care (01) ==
LOC: ED 18:56
DX: O26.891 Other specified pregnancy related conditions, first trimester (principal); R10.30 Lower abdominal pain, unspecified; Z3A.01 Less than 8 weeks gestation of pregnancy; E11.9 Type 2 diabetes mellitus without complications; Z79.4 Long term (current) use of insulin
CPT/HCPCS: 36415; 76817; 80053; 81003; 81015; 84702; 85025; 85060; 86900; 86901; 87077; 87086; 87186; 99282

== ENCOUNTER 2019-04-21 09:05 | Emergency (ER) | payer MEDICAID, OTHER ==
[2019-04-21 09:12] VITALS: BP 108/61
--- NOTE | 2019-04-21 10:25 | UC ---
Knee Pain HPI - HPI Summary HPI Summary: Pt with right knee pain since yesterday states twisted and felt like gave out yesterday. no fall No paresthesia pain medial aspect took APAP this am no paresthesia no weakness no other injuries medication reviewed not - History of Current Complaint Chief Complaint: UCLowerExtremity Stated Complaint: KNEE PAIN Time Seen by Provider: 04/21/19 09:36 Hx Obtained From: Patient Hx Last Menstrual Period: 01/05/19 Onset/Duration: Sudden Onset Severity Currently: Mild Pain Intensity: 5 - Allergies/Home Medications Allergies/Adverse Reactions: Allergies Allergy/AdvReac Type Severity Reaction Status Date / Time Lactose Intolerant Allergy Intermediate GI Upset Uncoded 04/21/19 09:12 PMH/Surg Hx/FS Hx/Imm Hx Previously Healthy: Yes - Surgical History Surgical History: Yes Surgery Procedure, Year, and Place: C-SECTIONS X3 - Family History Known Family History: Positive: None, Diabetes, Non-Contributory Negative: Respiratory Disease - Social History Occupation: Works From/At Home Lives: With Family Alcohol Use: None Substance Use Type: None Smoking Status (MU): Never Smoked Tobacco Review of Systems All Other Systems Reviewed And Are Negative: Yes Constitutional: Positive: Negative Skin: Positive: Negative Eyes: Positive: Negative Musculoskeletal: Positive: Other: - right knee pain Is Patient Immunocompromised?: No Physical Exam - Summary Physical Exam Summary: Vital Signs Reviewed: Yes A+Ox3, no distress Eyes: Conjunctiva Clear ENT: Hearing grossly normal neck: supple Respiratory: Positive: No respiratory distress, No accessory muscle use Cardiovascular: skin color reflect adequate perfusion 2+ DP, PT CBT < 2 sec Musculoskeletal Exam: + SLE + flex/ext knee with pain medial aspect patella with movement + flex/ext ankle + great toe extension + TTP along medial aspect wth direct palp neg anterior/posterior drawer neg laxity with lateral joint line Neurological: Positive: Alert, ambulatory without difficulty + gross sensation throughout Psychological: Positive: Normal Response To proivder Skin: Positive: no rash, no ecchymosis, no edema, no ecchymosis Triage Information Reviewed: Yes Vital Signs: Initial Vital Signs Temp 98.7 F 04/21/19 09:08 Pulse 85 04/21/19 09:08 Resp 17 04/21/19 09:08 BP 108/61 04/21/19 09:08 Pulse Ox 100 04/21/19 09:08 Diagnostics - Radiology No standard instances Radiology Interpretation Completed By: Radiologist - Patient Name: PRABHAKAR CARRASCO Medical Record#: [id number] Ordering Physician: Shira Belcher MD Acct.#: [id number] : 1990 Age: 29 Sex: F Location: [facility] Exam Date: 04/21/19928 ADM Status: REG ER Order Information: KNEE RIGHT 4+ VWS Accession Number: [id number] CPT: 24299 Indication: RIGHT knee pain following twisting injury last night. Comparison: February 09, 2016 Technique: RIGHT knee: AP, tunnel, lateral, sunrise views. Report: Negative for joint effusion, fracture, or malalignment. Preserved joint spaces. Unremarkable soft tissue contours. IMPRESSION: #. Negative exam. <Electronically signed by Christopher Zamorano MD in OV> 04/21/19958 Dictated By: Christopher Zamorano MD Dictated Date/Time: 04/21/19958 Transcribed Date/Time: 04/21/19953 Copy to: CC:Tal Walls MD; Shira Belcher MD Imaging - [facility] Imaging - [facility] [address] [place] [address] ph [phone]) ph ([phone]) ph ([phone]) This report is only to be considered final once signed by the Provider(s) as displayed in the "<Electronically Signed by > " field (s). Absence of a signature indicates the report is in a draft status and still needs to be finalized. In the event this document was created by someone other than the signing Provider, the individual initiating the document will be listed in the "Entered by:" or "Dictated by:" obrien. 1 of 1 Knee Pain Course/Dx - Course Course Of Treatment: Pt with right knee pain yesterday - twistig injury, "gave out" no fall pain medial aspect patella + ROM imaging neg acute fx motrin/apap elevate ice crutches f/u sports med - Differential Dx/Diagnosis Provider Diagnosis: Knee pain, left Discharge - Sign-Out/Discharge Documenting (check all that apply): Patient Departure All imaging exams completed and their final reports reviewed: Yes - Discharge Plan Condition: Stable Disposition: HOME Patient Education Materials: Knee Sprain (DC) Referrals: [facility] Orthopedic Services [Provider Group] [facility] [Provider Group] Tal Walls MD [Primary Care Provider] - Additional Instructions: .-Okay to alternate ibuprofen (Advil, Motrin) and tylenol every 3 hours for pain. Take with food. Do NOT take for more than 4-5 days - Use crutches until you can walk without pain or a limp - wear morenita wrap for support -Apply ice (20 min at a time) every 4 hours while awake today and tomorrow - Keep leg elevated - this will help with swelling and pain - contact your doctor, certified coding specialist or the orthopedic provider to schedule a follow-up appointment early next week - Billing Disposition and Condition Condition: STABLE Disposition: Home
== END 2019-04-21 10:45 | disposition home or self-care (01) ==
LOC: UCEAST 09:05
DX: M25.561 Pain in right knee (principal)
CPT/HCPCS: 99213; G0463

== ENCOUNTER 2020-01-25 11:49 | Emergency (ER) | payer OTHER ==
--- OUTSIDE RECORDS SUMMARY | 2020-01-25 12:28 | XMS REPORT | Continuity of Care Document ---
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 Onset: 03/24/2014 Note: saw Dr. Walls, metformin, glipizide Chondromalacia of patella Karina Zepeda, N.P. Onset: 03/24/2014 Learning difficulties Karina Zepeda, N.P. Onset: 03/24/2014 Note: Borderline Intellectual Functioning, see pysch evaluation 2009 Persistent proteinuria associated with type 2 Karen Haynes M.D. Onset: 10/2014 diabetes mellitus Hyperlipidemia Karen Haynes M.D. Onset: 09/04/2015 Social History Type Date Description Comments Sex Unknown ETOH Use 03/02/2014 Denies alcohol use Recreational Drug Use Denies Drug Use Tobacco Use Start: Unknown End: Patient is a former smoker Unknown Smoking Status Reviewed: 01/24/20 Patient is a former smoker Exercise Type/Frequency Exercises regularly walking qod Allergies, Adverse Reactions, Alerts Description No Known Drug Allergies Medications Active Medications SIG Qnty Indications Ordering Date Provider Pen [place] 1 daily and as 120units Christopher Foreman 32G X 4 mm Misc needed Lavon Stiles 7 Freestyle Lite Test Use To Test Blood 100units E11.9 Karen Strip Glucose 3 To 4 Lavon Haynes 6 Times A Day Unifine Pentips [id number] Use With Lantus 100units Karen [id number] Solostar Daily Lavon Haynes 6 Misc Freestyle Lite Blood check fingerstick 1units E11.9 Karen Glucose Monitoring System daily 3-4 times a Lavon Haynes 6 day Device Freestyle Lite Lancets 3-4 times daily 100units E11.9 [facility] or as needed Lavon Haynes 6 Pen [place] 12/18" use with lantus 90units [facility] 31G X 5 mm solostar daily Lavon Haynes 5 Misc Metformin HCL 2 by mouth twice Unknown 500mg Tablets a day 0 Medroxyprogesterone injection every 3 Unknown Acetate months 0 150mg/ml Suspension Basaglar Kwikpen Unknown 100Unit/ML 0 Solution Pen-Inject Admelog Solostar Unknown 100Unit/ML 0 Solution Pen-Inject QC Naproxen Sodium take two Unknown 220mg capsule/tablet by 0 Tablets mouth twice daily Immunizations CPT Code Status Date Vaccine Lot # [id number] Given 09/08/2016 Pneumonia Vaccine [id number] 55755 Given 09/08/2016 Influ Virus Vaccine, Quadrivalent, Split Virus, Im [id number] Fluzone not PF Q2037 Given 08/06/2015 Fluvirin Im 3Yrs And Older 34158 Given 07/21/2014 Flu Vaccine Split Virus Preservative Free For [id number] Indiv 3Yr Older 84653 Given 06/26/2011 Flu Vaccine Split Virus Preservative Free For Indiv 3Yr Older 04711 Given 02/02/2011 Tdap - Tetanus/Diptheria/Acellular Pertussis 04918 Given 07/11/2009 Varicella (Chicken Pox) Immunization 93621 Given 11/10/2007 Gardasil (HPV) 82094 Given 08/10/2007 Gardasil (HPV) 38839 Given 05/26/2007 Gardasil (HPV) 16631 Given 04/05/2004 Meningococcal Immunization 25834 Given 03/05/1999 Varicella (Chicken Pox) Immunization 80545 Given 03/05/1997 Hep B Pediatric/Adolescent 90256 Given 10/05/1995 Hep B Pediatric/Adolescent 01818 Given 09/04/1995 Hepatitis B Vaccine Adult Dosage 60115 Given 09/04/1995 Measles Mumps And Rubella MMR 12287 Given 04/04/1991 Measles Mumps And Rubella MMR 05519 Given Unknown Hepatitis B Vaccine Adult Dosage Vital Signs Date Vital Result Comment 01/24/2020 11:02am Height 59.75 inches 4'11.75" Weight 175.00 lb Heart Rate 108 /min Respiratory Rate 18 /min Body Temperature 98.7 F Pain Level 0 BMI (Body Mass Index) 34.5 kg/m2 12/12/2019 9:54am Height 59.75 inches 4'11.75" Weight 150.00 lb Heart Rate 100 /min Body Temperature 98.9 F O2 % BldC Oximetry 99 % BMI (Body Mass Index) 29.5 kg/m2 Results Description No Information Available Procedures Date Code Description Status 05/07/2018 343287003 Diabetic Retinal Eye Exam Completed 07/18/2016 449548175 Diabetic Retinal Eye Exam Completed Medical Devices Description No Information Available Encounters Type Date Location Provider Dx Diagnosis Office Visit 01/24/2020 [facility] Jon Stuart G56.21 Lesion of ulnar 10:45a at [place] MD nerve, right upper limb Office Visit 12/12/2019 [facility] Jimmy Prince M.D. M25.561 Pain in right 9:30a at [place] knee M23.8x1 Other internal derangements of right knee Assessments Date Code Description Provider 01/24/2020 G56.21 Lesion of ulnar nerve, right upper limb Jon Stuart MD 12/12/2019 M25.561 Pain in right knee Jimmy Prince M.D. 12/12/2019 M23.8x1 Other internal derangements of right knee Jimmy Prince M.D. Plan of Treatment Future Appointment(s):01/25/2020 10:30 am - Jimmy Prince M.D. at [facility] at Jajmjf0601/24/2020 - Jon Stuart MDG56.21 Lesion of ulnar nerve , right upper limbNew Therapy:Physical TherapyFollow up:Follow up: 6 weeks Functional Status Description No Information Available Mental Status Description No Information Available Referrals Description No Information Available
--- OUTSIDE RECORDS SUMMARY | 2020-01-25 12:28 | XMS REPORT | Continuity of Care Document ---
:1990 External Reference #:[id number] Author Name Jimmy Prince M.D. 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 Problems Active Problems Provider Date Type [...] a former smoker Unknown Smoking Status Reviewed: 12/12/19 Patient is a former smoker Exercise Type/Frequency Exercises regularly walking qod Allergies, Adverse Reactions, Alerts Description No Known Drug Allergies Medications Active Medications SIG Qnty Indications Ordering Date Provider Pen [place] 1 daily and as 120units Christopher Foreman 32G X 4 mm Misc needed Lavon Stiles 7 Freestyle Lite Test Use To Test Blood 100units E11.9 Karen Strip Glucose 3 To 4 Lavon Haynes 6 Times A Day Unifine Pentips [id number] Use With Lantus 100units Karen [id number] Solostar Daily Lavon Haynes 6 Misc Freestyle Lite Blood check fingerstick 1units E11.9 Karen Glucose Monitoring System daily 3-4 times a Lavon Haynes 6 day Device Freestyle Lite Lancets 3-4 times daily 100units E11.9 [facility] or as needed Lavon Haynes 6 Pen [place] 12/18" use with lantus 90units Karen 31G X 5 mm solostar daily Lavon [...] CPT Code Status Date Vaccine Lot # [id number] Given 09/08/2016 Pneumonia Vaccine [id number] 15142 Given 09/08/2016 Influ Virus Vaccine, Quadrivalent, Split Virus, Im [id number] Fluzone not PF Q2037 Given 08/06/2015 Fluvirin Im 3Yrs And Older 02746 Given 07/21/2014 Flu Vaccine Split Virus Preservative Free For [id number] Indiv 3Yr Older 01189 Given 06/26/2011 Flu Vaccine Split Virus Preservative Free For Indiv 3Yr Older 88067 Given 02/02/2011 Tdap - Tetanus/Diptheria/Acellular Pertussis 15803 Given 07/11/2009 Varicella (Chicken Pox) Immunization 11703 Given 11/10/2007 Gardasil (HPV) 18747 Given 08/10/2007 Gardasil (HPV) 33478 Given 05/26/2007 Gardasil (HPV) 88037 Given 04/05/2004 Meningococcal Immunization 76576 Given 03/05/1999 Varicella (Chicken Pox) Immunization 20389 Given 03/05/1997 Hep B Pediatric/Adolescent 02499 Given 10/05/1995 Hep B Pediatric/Adolescent 70292 Given 09/04/1995 Hepatitis B Vaccine Adult Dosage 80187 Given 09/04/1995 Measles Mumps And Rubella MMR 52745 Given 04/04/1991 Measles Mumps And Rubella MMR 93549 Given Unknown Hepatitis B Vaccine Adult Dosage Vital Signs Date Vital Result Comment 12/12/2019 9:54am Height 59.75 inches 4'11.75" Weight 150.00 lb Heart Rate 100 /min Body Temperature 98.9 F O2 % BldC Oximetry 99 % BMI (Body Mass Index) 29.5 kg/m2 02/16/2018 2:09pm Height 59.75 inches 4'11.75" Heart Rate 85 /min BP Systolic 90 mmHg BP Diastolic 62 mmHg Respiratory Rate 16 /min Body Temperature 98.4 F Pain Level 0 Results Description No Information Available Procedures Date Code Description Status 05/07/2018 674156273 Diabetic Retinal Eye Exam Completed 07/18/2016 802900944 Diabetic Retinal Eye Exam Completed Medical Devices Description No Information Available Encounters Type Date Location Provider Dx Diagnosis Office Visit 12/12/2019 [facility] Jimmy Prince M.D. S83.231A Complex tear of 9:30a at [facility], current injury, r knee, init Assessments Date Code Description Provider 12/12/2019 S83.231A Complex tear of medial meniscus, current injury, Jimmy Prince M.D. right knee, initial encounter Plan of Treatment Future Appointment(s):01/03/2020 11:00 am - Jon Stuart MD at [facility] at Guuwjp6912/12/2019 - Jimmy Prince M.D.S83.231A Complex tear of medial meniscus, current injury, right knee, initial encounterNew Xrays:MRI Knee Right W/O, Ordered: 12/12/19Follow up:Follow up: O/V after MRI right knee OK to do gentle knee exercises Functional Status Description No Information Available Mental Status Description No Information Available Referrals Description No Information Available
--- OUTSIDE RECORDS SUMMARY | 2020-01-25 12:28 | XMS REPORT | Continuity of Care Document ---
:1990 External Reference #:[id number] Author Name Jimmy Prince M.D. 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 Problems Active Problems Provider Date Type 2 [...] SIG Qnty Indications Ordering Date Provider Pen [place] 1 daily and as 120units Christopher Foreman 32G X 4 mm Misc needed Lavon Stiles 7 Freestyle Lite Test Use To Test Blood 100units E11.9 Karen Strip Glucose 3 To 4 Lavon Haynes 6 Times A Day Unifine Pentips [id number] Use With Lantus 100units Karen [id number] Solostar Daily Lavon Haynes 6 Misc Freestyle Lite Blood check fingerstick 1units E11.9 [facility] Glucose Monitoring System daily 3-4 times a Lavon Haynes 6 day Device Freestyle Lite Lancets 3-4 times daily 100units E11.9 [facility] or as needed Lavon Haynes 6 Pen [place] 12/18" use with lantus 90units Karen 31G [...] CPT Code Status Date Vaccine Lot # [id number] Given 09/08/2016 Pneumonia Vaccine [id number] 17248 Given 09/08/2016 Influ Virus Vaccine, Quadrivalent, Split Virus, Im [id number] Fluzone not PF Q2037 Given 08/06/2015 Fluvirin Im 3Yrs And Older 40268 Given 07/21/2014 Flu Vaccine Split Virus Preservative Free For [id number] Indiv 3Yr Older 47535 Given 06/26/2011 Flu Vaccine Split Virus Preservative Free For Indiv 3Yr Older 16461 Given 02/02/2011 Tdap - Tetanus/Diptheria/Acellular Pertussis 32502 Given 07/11/2009 Varicella (Chicken Pox) Immunization 80350 Given 11/10/2007 Gardasil (HPV) 51220 Given 08/10/2007 Gardasil (HPV) 35224 Given 05/26/2007 Gardasil (HPV) 85852 Given 04/05/2004 Meningococcal Immunization 33968 Given 03/05/1999 Varicella (Chicken Pox) Immunization 55906 Given 03/05/1997 Hep B Pediatric/Adolescent 77681 Given 10/05/1995 Hep B Pediatric/Adolescent 13495 Given 09/04/1995 Hepatitis B Vaccine Adult Dosage 40944 Given 09/04/1995 Measles Mumps And Rubella MMR 12482 Given 04/04/1991 Measles Mumps And Rubella MMR 63273 Given Unknown Hepatitis B Vaccine Adult Dosage [...] Available Procedures Date Code Description Status 05/07/2018 [id number] Diabetic Retinal Eye Exam Completed 07/18/2016 787808786 Diabetic Retinal Eye Exam Completed Medical Devices Description No Information Available Encounters Type Date Location Provider Dx Diagnosis Office Visit 12/12/2019 [facility] Jimmy Prince M.D. M25.561 Pain in right 9:30a at [place] knee M23.8x1 Other internal derangements of right knee Assessments Date Code Description Provider 12/12/2019 M25.561 Pain in right knee Jimmy Prince M.D. 12/12/2019 M23.8x1 Other internal derangements of right knee Jimmy Prince M.D. Plan of Treatment Future Appointment(s):01/03/2020 11:00 am - Jon Stuart MD at [facility] at Tpiwzx5612/12/2019 - Jimmy Prince M.D.M25.561 Pain in right kneeM23.8x1 Other internal derangements of right knee Functional Status Description No Information Available Mental Status Description No Information Available Referrals Description No Information Available
--- OUTSIDE RECORDS SUMMARY | 2020-01-25 12:28 | XMS REPORT | Continuity of Care Document ---
:1990 External Reference #:[id number] Author Name Jimmy Prince M.D. (transmitted by agent of provider Stephanie Hopkins) Address [address] [place] [address] [place] [address] Care Team Providers Name Role Phone Tal Walls MD - Endocrinology, Care Team Information Ct Scan Tech Diabetes & Metabolism Problems Active Problems Provider Date Type 2 [...] a former smoker Unknown Smoking Status Reviewed: 01/25/20 Patient is a former smoker Exercise Type/Frequency Exercises regularly walking qod Allergies, Adverse Reactions, Alerts Description No Known Drug Allergies Medications Active Medications SIG Qnty Indications Ordering Date Provider Pen [place] 1 daily and as 120units Christopher Foreman 32G X 4 mm Misc needed Lavon Stiles 7 Freestyle Lite Test Use To Test Blood 100units E11.9 Karen Strip Glucose 3 To 4 Lavon Haynes 6 Times A Day Unifine Pentips [id number] Use With Lantus 100units Karen [id number] Solostar Daily Lavon Haynes 6 Misc Freestyle Lite Blood check fingerstick 1units E11.9 Karen Glucose Monitoring System daily 3-4 times a Lavon Haynes 6 day Device Freestyle Lite Lancets 3-4 times daily 100units E11.9 Karen or as needed Lavon Haynes 6 Pen [place] 12/18" use with lantus 90units Karen 31G [...] CPT Code Status Date Vaccine Lot # [id number] Given 09/08/2016 Pneumonia Vaccine [id number] 27373 Given 09/08/2016 Influ Virus Vaccine, Quadrivalent, Split Virus, Im [id number] Fluzone not PF Q2037 Given 08/06/2015 Fluvirin Im 3Yrs And Older 50394 Given 07/21/2014 Flu Vaccine Split Virus Preservative Free For 526271 Indiv 3Yr Older 05637 Given 06/26/2011 Flu Vaccine Split Virus Preservative Free For Indiv 3Yr Older 59839 Given 02/02/2011 Tdap - Tetanus/Diptheria/Acellular Pertussis 55826 Given 07/11/2009 Varicella (Chicken Pox) Immunization 07321 Given 11/10/2007 Gardasil (HPV) 75662 Given 08/10/2007 Gardasil (HPV) 17877 Given 05/26/2007 Gardasil (HPV) 75193 Given 04/05/2004 Meningococcal Immunization 00870 Given 03/05/1999 Varicella (Chicken Pox) Immunization 96115 Given 03/05/1997 Hep B Pediatric/Adolescent 52401 Given 10/05/1995 Hep B Pediatric/Adolescent 90837 Given 09/04/1995 Hepatitis B Vaccine Adult Dosage 53534 Given 09/04/1995 Measles Mumps And Rubella MMR 47369 Given 04/04/1991 Measles Mumps And Rubella MMR 61709 Given Unknown Hepatitis B Vaccine Adult Dosage Vital Signs Date Vital Result Comment 01/25/2020 10:29am Height 59.75 inches 4'11.75" Weight 175.00 lb Heart Rate 88 /min BP Systolic 128 mmHg BP Diastolic 66 mmHg Respiratory Rate 20 /min Body Temperature 97.5 F Pain Level 6 BMI (Body Mass Index) 34.5 kg/m2 01/24/2020 11:02am Height 59.75 inches 4'11.75" Weight 175.00 lb Heart Rate 108 /min Respiratory Rate 18 /min Body Temperature 98.7 F Pain Level 0 BMI (Body Mass Index) 34.5 kg/m2 Results Test Acquired Date Facility Test Result H/L Range Note Xray 01/24/2020 [facility] Elbow Left 3+VWS <pending> [address] [place] [address] [phone] Elbow Right 3+ VWS <pending> Wrist Right 3+ VWS <pending> Procedures Date Code Description Status 05/07/2018 142244228 Diabetic Retinal Eye Exam Completed 07/18/2016 624809408 Diabetic Retinal Eye Exam Completed Medical Devices Description No Information Available Encounters Type Date Location Provider Dx Diagnosis Office Visit 01/25/2020 [facility] Jimmy Prince M22.41 Chondromalacia 10:30a [place] patellae, right knee Office Visit 12/12/2019 [facility] Jimmy Prince M25.561 Pain in right knee 9:30a at [place] M23.8x1 Other internal derangements of right knee Assessments Date Code Description Provider 01/25/2020 M22.41 Chondromalacia patellae, right knee Jimmy Prince M.D. 01/24/2020 G56.21 Lesion of ulnar nerve, right upper limb Jon Stuart MD 12/12/2019 M25.561 Pain in right knee Jimmy Prince M.D. 12/12/2019 M23.8x1 Other internal derangements of right knee Jimmy Prince M.D. Plan of Treatment Future Appointment(s):03/06/2020 1:00 pm - Jon Stuart MD at [facility] at Ynunxh4401/25/2020 - Jimmy Prince M.D.M22.41 Chondromalacia patellae , right kneeFollow up:Follow up: As needed Keep up the walking Use ice and naproxen after as needed Do knee exercisesfor bending, straightening, and lifting OK to use pullover knee sleeve if desired Functional Status Description No Information Available Mental Status Description No Information Available Referrals Description No Information Available
--- NOTE | 2020-01-25 13:02 | UC ---
Hand/Wrist HPI - HPI Summary HPI Summary: ACCIDENTALLY JAMMED HER RIGHT INDEX FINGER INTO THE SIDE OF HER DAUGHTER'S CRIB LAST NIGHT. HAS MILD SWELLING AND DECREASED RANGE OF MOTION. NO NUMBNESS OR TINGLING. - History Of Current Complaint Chief Complaint: UCUpperExtremity Stated Complaint: FINGER INJURY Time Seen by Provider: 01/25/20 12:33 Hx Obtained From: Patient Hx Last Menstrual Period: on depoprovera Onset/Duration: Sudden Onset, Lasting Hours, Still Present Severity Initially: Moderate Severity Currently: Moderate Pain Intensity: 6 Pain Scale Used: 0-10 Numeric Character Of Pain: Sharp Aggravating Factor(s): Movement Alleviating Factor(s): Rest, Elevation Associated Signs And Symptoms: Positive: Swelling. Negative: Redness, Numbness/ Tingling Related History: Dominant Hand Right - Allergies/Home Medications Allergies/Adverse Reactions: Allergies Allergy/AdvReac Type Severity Reaction Status Date / Time Lactose Intolerant Allergy Intermediate GI Upset Uncoded 01/25/20 12:19 Home Medications: Home Medications Insulin Glargine (Nf) [Toujeo Solostar Pen 300 units/ml 1.5 ml x 3 Pens (NF)] 60 unit SUBCUT BID 05/17/18 [History Confirmed 01/25/20] Flash Glucose Scanning [place] [Freestyle Real 10 Day [place]] 01/25/20 [ History Confirmed 01/25/20] Insulin Lispro [Admelog 100 units/ml 10 ml VIAL] 0 units SUBCUT .SEE INSTRUCTIONS 01/25/20 [History Confirmed 01/25/20] PMH/Surg Hx/FS Hx/Imm Hx Endocrine History: Diabetes - Surgical History Surgical History: Yes Surgery Procedure, Year, and Place: C-SECTIONS X3. RIGHT ARM 12/21/17-NO METAL - Family History Known Family History: Positive: Diabetes, Non-Contributory Negative: Respiratory Disease - Social History Alcohol Use: None Substance Use Type: None Smoking Status (MU): Never Smoked Tobacco Review of Systems All Other Systems Reviewed And Are Negative: Yes Constitutional: Positive: Negative Skin: Positive: Negative Respiratory: Positive: Negative Cardiovascular: Positive: Negative Gastrointestinal: Positive: Negative Musculoskeletal: Positive: Arthralgia, Decreased ROM, Edema Physical Exam Triage Information Reviewed: Yes Appearance: Well-Appearing, No Pain Distress, Well-Nourished Vital Signs: Vital Signs (72 hours) 01/25/20 13:04 Temperature 98.3 F Pulse Rate 83 Respiratory 16 Rate Blood Pressure 110/59 (mmHg) O2 Sat by Pulse 100 Oximetry Vital Signs Reviewed: Yes Eyes: Positive: Conjunctiva Clear ENT: Positive: Hearing grossly normal Neck: Positive: Supple Respiratory: Positive: No respiratory distress, No accessory muscle use Cardiovascular: Positive: Pulses Normal Musculoskeletal: Positive: ROM Limited @ - RIGHT INDEX FINGER FLEXION, Edema @ - RIGHT PROXIMAL INDEX FINGER, Other: - TTP RIGHT INDEX FINGER Neurological: Positive: Alert Psychological: Positive: Age Appropriate Behavior Skin: Negative: Rashes Diagnostics - Radiology RIGHT 2ND FINGER XRAYS Radiology Interpretation Completed By: Radiologist Summary of Radiographic Findings: NO ACUTE OSSEOUS INJURY. Hand/Wrist Course/Dx - Course Course Of Treatment: NO ACUTE OSSEOUS INJURY SEEN ON X-RAY TODAY. FINGER SPLINT APPLIED FOR PROTECTION AND COMFORT. REST, ICE, ELEVATE. OTC MEDS NEEDED FOR DISCOMFORT. SEEK FOLLOW-UP IF SYMPTOMS NOT IMPROVING OVER THE NEXT 1-2 WEEKS. - Differential Dx/Diagnosis Provider Diagnosis: Sprain of right index finger Discharge ED - Sign-Out/Discharge Documenting (check all that apply): Patient Departure All imaging exams completed and their final reports reviewed: Yes - Discharge Plan Condition: Stable Disposition: HOME Patient Education Materials: Finger Sprain (ED) Referrals: Tal Walls MD [Primary Care Provider] - If Needed Additional Instructions: XRAY TODAY NEGATIVE FOR FRACTURE OR DISLOCATION. YOUR SYMPTOMS SHOULD IMPROVE SIGNIFICANTLY OVER THE NEXT 1-2 WEEKS. IF YOU DO NOT IMPROVE EXPECTED FOLLOW- UP WITH YOUR PCP OR ORTHO. YOU MAY BENEFIT FROM REPEAT IMAGING AT THAT TIME. OTC IBUPROFEN OR ALEVE NEEDED FOR DISCOMFORT. REST, ICE, ELEVATE. WEAR THE FINGER SPLINT FOR PROTECTION AND SYMPTOM RELIEF. - Billing Disposition and Condition Condition: STABLE Disposition: Home
[2020-01-25 13:05] VITALS: BP 110/59
== END 2020-01-25 13:31 | disposition home or self-care (01) ==
LOC: UCEAST 11:49
DX: S63.610A Unspecified sprain of right index finger, initial encounter (principal); W23.1XXA Caught, crushed, jammed, or pinched between stationary objects, initial encounter; Y92.003 Bedroom of unspecified non-institutional (private) residence as the place of occurrence of the external cause; E11.9 Type 2 diabetes mellitus without complications; Z79.4 Long term (current) use of insulin; Z91.011 Allergy to milk products
CPT/HCPCS: 73140; 99212; G0463